=== PATIENT | male | born 1970 | race Caucasian/White ===

== ENCOUNTER 2018-08-14 14:53 | Emergency (ER) | payer SELFPAY ==
[~2018-08-14] VITALS: Ht 177.8 cm; Wt 104.3 kg
[2018-08-14 15:16] VITALS: BP_SYST 152
--- NOTE | 2018-08-14 15:18 | NUR ---
Patient triaged and placed in waiting room. VSS and patient appears in no acute distress at this time. Accompanied by family, awaiting available bed, and MD notified of need for MSE.
--- NOTE | 2018-08-14 15:21 | NUR ---
Martha Kovacs [employer] examining patient while in triage.
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
--- NOTE | 2018-08-14 15:45 | NUR ---
Patient ambulating to radiology, accompanied by diesel truck technician.
--- NOTE | 2018-08-14 15:55 | NUR ---
Returned from radiology, back to [facility].
[2018-08-14] MEDS ORDERED: KETOROLAC TROMETHAMINE 60 MG/2 ML VIAL IM ONE (16:30)
[2018-08-14 16:45] VITALS: BP_SYST 140
--- NOTE | 2018-08-14 16:45 | NUR ---
Patient given written and verbal discharge instructions and verbalizes understanding. ER MD discussed with patient the results and treatment provided. Patient in stable condition. ID arm band removed. Rx of toradol, tylenol given. Patient educated on pain management and to follow up with PMD. Pain Scale 5/10, [employer] Martha Kovacs is aware.. Opportunity for questions provided and answered. Medication side effect fact sheet provided.
== END 2018-08-14 16:45 | disposition home or self-care (01) ==
LOC: SED 14:53
DX: S16.1XXA Strain of muscle, fascia and tendon at neck level, initial encounter (principal); R51 Headache; I10 Essential (primary) hypertension; I25.2 Old myocardial infarction; E78.5 Hyperlipidemia, unspecified; V89.2XXA Person injured in unspecified motor-vehicle accident, traffic, initial encounter; Y93.89 Activity, other specified; Y92.410 Unspecified street and highway as the place of occurrence of the external cause; Y99.8 Other external cause status
CPT/HCPCS: 70450; 96372; 99284; J1885